=== PATIENT | male | born 1985 | race Caucasian/White ===

== ENCOUNTER 2016-10-28 20:10 | Emergency (ER) | payer OTHER ==
[~2016-10-28] VITALS: Ht 190.5 cm; Wt 105.8 kg
[2016-10-28 21:11] LABS: HEMATOCRIT 41.2 % (38.0-50.0); MCH 29.8 PG (29.0-34.0); MCHC 35.4 G/DL (30.0-36.0); MCV 84.1 FL (86-99); MEAN PLAT.VOLUME 9.1 uM^3 (9.0-12.4); PLATELET COUNT 261 K/uL (156-360); RBC DIS.WIDTH-CV 11.1 % (11.8-14.6); RBC DIS.WIDTH-SD 34.1 % (39-53); WHITE BLOOD COUNT 6.8 K/uL (4.1-10.2)
[2016-10-28 21:18] LABS: CHLORIDE 107 mEq/L (99-109); POTASSIUM 3.6 mEq/L (3.7-5.4); SODIUM 140 mEq/L (136-147)
[2016-10-28 21:20] LABS: GLUCOSE 118 mg/dL (70-99)
[2016-10-28 21:22] LABS: ANION GAP 9 MEQ/L (2-14)
[2016-10-28 21:24] LABS: GFR ESTIMATE (CALCULATED) > 59 mL/min/
[2016-10-28 21:25] LABS: UREA NITROGEN (BUN) 10 mg/dL (9-23)
[2016-10-28 21:30] LABS: TROP-I INTERPRETATION NEGATIVE; TROPONIN-I < 0.01 ng/mL (0.0-0.30)
[2016-10-28] MEDS ORDERED: ATARAX,VISTARIL50 MG PO (22:12)
[2016-10-28 22:16] VITALS: BP 122/76
== END 2016-10-28 22:34 | disposition home or self-care (01) ==
LOC: EME 20:10 → RME 20:10
PROVIDERS: Physician Assistant Medical
DX: R07.89 Other chest pain (principal); Z88.7 Allergy status to serum and vaccine
CPT/HCPCS: 71020; 80048; 84484; 85027; 93005; 94640; 99281; 99284; Q0177